=== PATIENT | male | born 1995 | race Caucasian/White ===

== ENCOUNTER 2019-12-30 11:00 | Outpatient (RCR) | payer OTHER, SELFPAY | END 2020-01-20 16:00 | disposition home or self-care (01) | LOC: PT.CARL 11:00 | PROVIDERS: Visit Provider Orthopaedic Surgery Sports Medicine | DX: S43.004A Unspecified dislocation of right shoulder joint, initial encounter (principal) | CPT/HCPCS: 97010; 97014; 97110; 97140; 97163; G0283 ==

== ENCOUNTER 2020-07-05 09:00 | Outpatient (RCR) | payer OTHER, SELFPAY | END 2020-07-13 16:00 | disposition home or self-care (01) | LOC: PT.CARL 09:00 | PROVIDERS: Visit Provider Orthopaedic Surgery Sports Medicine | DX: S43.004D Unspecified dislocation of right shoulder joint, subsequent encounter (principal) | CPT/HCPCS: 97010; 97014; 97110; 97140; 97163; 97164; G0283 ==

== ENCOUNTER 2022-01-04 11:11 | Emergency (ER) | payer MEDICAID, SELFPAY ==
[2022-01-04 11:55] VITALS: BP 120/74; PULSE 86; RESP 18; TEMP 36.8; O2SAT 98; BMI 33.1
[2022-01-04 12:12] LABS: UTC Strep Screen (Rapid) Negative (Negative)
[2022-01-04 12:21] VITALS: BP 120/74; PULSE 86; RESP 18; TEMP 36.8; O2SAT 98
--- NOTE | 2022-01-04 12:21 | EXP.UTC ---
Discharge Plan Disposition Patient Disposition: Home, Self-Care Condition: Good Prescriptions Prescriptions: New methylprednisolone [Medrol (Jacek)] 4 mg tablets,dose pack See Rx Instructions .Route .COMPLEX 6 Days Qty: 21 0RF Rx Instructions: taper pack; azithromycin [Zithromax Z-Jacek] 250 mg tablet See Rx Instructions .ROUTE .COMPLEX Qty: 6 0RF Rx Instructions: For 250 mg dose pack: take 500 mg today (day 1), then 250 mg for 4 days (days 2-5) Referrals Follow up/Referrals: Ernst Lackey [Primary Care Provider] - See instructions Activity Restrictions/Add. Instructions Additional Instructions/Restrictions: *Monitor Temp, Over the counter Motrin or Tylenol as directed/as needed Tylenol every 4 hours and Motrin every 6 hours (as long as your family doctor has told you that you can take it) for fever or pain. and straight to ER if unable to lower temp less than 101.0 after medication given *Warm salt water gargles may help to soothe the throat *Throat Lozenges? *Warm fluids like tea with honey may help to soothe the throat? *Sleep elevated *Humidifier/Vaporizer Take medication as prescribed Follow up IMMEDIATELY for new or worsening symptoms or no Noticeable improvement over the next 48-72 hours. 911 for difficulty breathing or swallowing Clinical Impressions Clinical Impression: Sinusitis Stand Alone Forms Stand Alone Forms: Work/School Release Instructions Patient Instructions: DI for Sinusitis, Sinusitis Discharge ED Provider: Georgette Jimenez [facility] General Stated complaint: RAMIREZ, Sore throat, cough, congestion Mode of Arrival: Ambulatory Source of Information: Patient Limitations: No Limitations Time Seen by Provider: 01/04/22 12:21 Description of Symptoms (Recalled from Triage Doc. by RN): PATIENT C/O COUGH AND SORE THROAT X 2 DAYS. HE REPORTS IT STARTED AFTER WORKING IN THE RAIN HEENT Symptoms (Recalled from RN notes): Yes Resp Symptoms (Recalled from RN notes): Yes Skin Symptoms (Recalled from RN notes): No MS Symptoms (Recalled from RN notes): No Functional Status (Recalled from RN notes): WNL History of Present Illness Provider Complaint: Patient states that he worked out in the rain several days ago and thinks it got him sick States that he has been having sinus pain and pressure, sore throat, drainage in the back of his throat States that pressure is worse if he lays down So today when he was still having symptoms he came in Related Data Previous Rx's Medication Instructions Recorded azithromycin 250 mg tablet See Rx Instructions PO .COMPLEX #6 01/04/22 (Zithromax Z-Jacek) tabs methylprednisolone 4 mg tablets in See Rx Instructions .Route 01/04/22 a dose pack (Medrol (Jacek)) .COMPLEX 6 days #21 tabs Allergies Allergy/AdvReac Type Severity Reaction Status Date / Time brompheniramine Allergy Severe THROAT Unverified 04/17/17 14:55 [From [employer]IM[employer]LLS (BROMPHENIRAMINE-PPA)] phenylpropanolamine Allergy Severe THROAT Unverified 04/17/17 14:55 [From [employer]IM[employer]WELL[employer] (BROMPHENIRAMINE-PPA)] Worker's Comp Is this a Worker's Comp case?: No PFSH PFSH Medical History (Updated 01/04/22 @ 12:27 by Georgette Jimenez APRN) Asthma Social History (Updated 01/04/22 @ 12:03 by Yohana Ferrari RN) Smoking Status: Current every day smoker alcohol intake: never current occupational status: other Travel in the last 8 weeks: None ROS Obtained: Yes All systems reviewed & no additional complaints except as documented and Yes Systems reviewed as appropriate & no additional complaints except as documented Constitutional Constitutional: Reports system reviewed and no additional complaints, except as documented and Reports as per HPI Eyes Eyes: Reports system reviewed and no additional complaints, except as documented and Reports as per HPI ENT Ears, Nose, Mouth, and Throat: Reports system reviewed and no additional complaints,
== END 2022-01-04 12:30 | disposition home or self-care (01) ==
PROVIDERS: Emergency Provider Nurse Practitioner; PCP Pediatrics
DX: J02.9 Acute pharyngitis, unspecified (principal); R51.9 Headache, unspecified; R05.9 Cough, unspecified; J32.9 Chronic sinusitis, unspecified; F17.210 Nicotine dependence, cigarettes, uncomplicated; Z79.52 Long term (current) use of systemic steroids; Z88.8 Allergy status to other drugs, medicaments and biological substances
CPT/HCPCS: 87880; 99213; G0463

== ENCOUNTER 2022-06-06 09:46 | Emergency (ER) | payer MEDICAID, SELFPAY ==
--- NOTE | 2022-06-06 11:43 | EXP.UTC ---
Discharge Plan Disposition Patient Disposition: Home, Self-Care Condition: Good Prescriptions Prescriptions: New ibuprofen [IBU] 800 mg tablet 800 mg PO Q8HP PRN (Reason: Moderate Pain) Qty: 30 0RF Referrals Follow up/Referrals: Ernst Lackey [Primary Care Provider] - See instructions Activity Restrictions/Add. Instructions Additional Instructions/Restrictions: Drink plenty of fluids. Take tylenol or ibuprofen for pain or fever. Take the medications as directed. Follow up with your regular doctor. GO TO THE ER FOR ANY WORSENING SYMPTOMS Use the incentive spirometer 10 times every 2 hours while awake for the next 2 weeks. Clinical Impressions Clinical Impression: Contusion of rib on right side Stand Alone Forms Stand Alone Forms: Work/School Release Instructions Patient Instructions: How to Use an Incentive Spirometer, DI for Rib Contusion Discharge ED Provider: Fredy Dukes [facility] General Stated complaint: AO 2/5 RT side rib pain Time Seen by Provider: 06/06/22 11:43 History of Present Illness Provider Complaint: He states that 3 days ago he was thrown off a horse and he came down on his right ribs. Since then he has had right rib pain that is worse with coughing and deep breathing. Related Data Previous Rx's Medication Instructions Recorded ibuprofen 800 mg tablet (IBU) 800 mg PO Q8HP PRN Moderate Pain 06/06/22 #30 tabs Allergies Allergy/AdvReac Type Severity Reaction Status Date / Time brompheniramine Allergy Severe THROAT Verified 06/06/22 11:54 [From [employer] (BROMPHENIRAMINE-PPA)] phenylpropanolamine Allergy Severe THROAT Verified 06/06/22 11:54 [From DIMETAPP SWELLS (BROMPHENIRAMINE-PPA)] [facility] Disclaimer: The information contained in this section may have been updated after the patient was seen, as this information can be updated by other users. Medical History Asthma Social History Smoking Status: Current every day smoker alcohol intake: never current occupational status: other Travel in the last 8 weeks: None ROS Obtained: Yes All systems reviewed & no additional complaints except as documented Constitutional Constitutional: Denies chills and Denies fever(s) Eyes Eyes: Denies eye discharge ENT Ears, Nose, Mouth, and Throat: Denies dizziness, Denies otalgia and Denies sore throat Cardiovascular Cardiovascular: Reports as per HPI and Denies chest pain Respiratory Respiratory: Denies shortness of breath, Denies chest congestion, Denies cough, Denies stridor and Denies wheezing Gastrointestinal Gastrointestingal: Denies nausea or vomiting Musculoskeletal Musculoskeletal: Reports as per HPI Integumentary/Breasts Skin/Breast: Denies rash Neurologic Neurologic: Denies dizziness and Denies paresthesias Allergic/Immunologic Allergic/Immunologic: Denies wheezing Physical Exam General General appearance: alert and in no apparent distress Head Head exam: atraumatic, normocephalic and normal inspection Eye Eye exam: Present normal appearance, PERRL and EOMI ENT ENT exam: Present normal exam, normal oropharynx, mucous membranes moist, TM's normal bilaterally and normal external ear exam Neck Neck exam: Present normal inspection, full ROM and trachea midline; Absent meningismus or lymphadenopathy Chest Chest inspection: Present symmetric chest wall rise and tenderness Respiratory Respiratory exam: Present normal lung sounds bilaterally; Absent respiratory distress Cardiovascular Cardiovascular exam: Present regular rate and normal rhythm; Absent JVD Abdominal Exam Abdominal exam: Present soft and normal bowel sounds; Absent distention, tenderness or guarding Extremities Exam Extremities exam: Present normal inspection, full ROM and normal capillary refill; Absent calf tenderness Back Exam Back exam: Present normal
--- NOTE | 2022-06-06 11:44 | XR_ITS ---
FINAL REPORT CLINICAL HISTORY: pain FINDINGS: A single view of the chest with 3 views of the ribs were obtained. There is no acute cardiopulmonary process. No pneumothorax is identified. No displaced rib fracture identified. IMPRESSION: No acute process. Reviewed, Interpreted and Dictated by Niraj Fischer MD Transcribed by Krista Fam Authenticated and [facility]
[2022-06-06 11:50] VITALS: BP 153/94; PULSE 70; RESP 20; TEMP 36.7; O2SAT 99; BMI 36.6
[2022-06-06 12:39] VITALS: BP 153/94; PULSE 70; RESP 20; TEMP 36.7; O2SAT 99
== END 2022-06-06 12:39 | disposition home or self-care (01) ==
PROVIDERS: Emergency Provider Nurse Practitioner Family; PCP Pediatrics
DX: S20.211A Contusion of right front wall of thorax, initial encounter (principal); V80.919A Animal-rider injured in unspecified transport accident, initial encounter
CPT/HCPCS: 71101; 99212; G0463